=== PATIENT | female | born 1980 | race Caucasian/White ===

== ENCOUNTER 2018-08-01 18:59 | Emergency (ER) | payer BC ==
[~2018-08-01] VITALS: Ht 154.9 cm; Wt 81.2 kg
[2018-08-01 19:44] LABS: BILIRUBIN,URINE NEGATIVE (NEG); CLARITY,URINE CLEAR; COLOR,URINE YELLOW; NITRITE,URINE NEGATIVE (NEG); PROTEIN,URINE NEGATIVE (NEG-TRACE); UROBILINOGEN,URINE 0.2 mg/dL (0.2 mg/dL)
[2018-08-01] MEDS ORDERED: IV NORMAL SALINE 1000ML BAG 1,000 ML IV ONE (19:45)
[2018-08-01] MEDS ORDERED: ONDANSETRON PF 4 MG/2 ML VIAL. IV ONE (19:45)
[2018-08-01] MEDS ORDERED: fentaNYL PF VIAL 100 MCG/2 ML VIAL IV ONE (19:45)
--- NOTE | 2018-08-01 19:45 | PHYS DOC ---
Past Medical History Past Medical History: No Pertinent History Alcohol Use: None Drug Use: None Adult General Chief Complaint Chief Complaint: ABDOMINAL PAIN HPI HPI Patient is a 37 year old female who presents with generalized abdominal pain started today at 11:00 she was at the gym on the [facility] [employer]. Patient states started in the left lower abdomen and made its way up to her upper abdomen. Patient states she had a bowel movement this morning that was normal for her. Patient states she feels pressure but no pain with urinating. Patient denies any nausea or vomiting or diarrhea. Patient states she is finished her menses yesterday. Patient states she has no known drug allergies, takes no meds daily, does no drugs or alcohol or smoke. Patient states she has a history of a left- sided ovarian cyst and a . Review of Systems Review of Systems Constitutional: Denies fever or chills [] Eyes: Denies change in visual acuity, redness, or eye pain [] HENT: Denies nasal congestion or sore throat [] Respiratory: Denies cough or shortness of breath [] Cardiovascular: No additional information not addressed in HPI [] GI: generalised abdominal pain. Denies nausea, vomiting, bloody stools or diarrhea [] : Bladder pressure. Denies dysuria or hematuria [] Musculoskeletal: Denies back pain or joint pain [] Integument: Denies rash or skin lesions [] Neurologic: Denies headache, focal weakness or sensory changes [] Endocrine: Denies polyuria or polydipsia [] All other systems were reviewed and found to be within normal limits, except as documented in this note. Current Medications Current Medications Current Medications Medications (Trade) Dose Ordered Sig/[facility] Start Time Stop Time Status Last Admin Dose Admin Fentanyl Citrate (Fentanyl 2ml Vial) 50 mcg 1X ONCE 08/01/18 19:45 08/01/18 19:46 DC 08/01/18 19:51 50 MCG Iohexol (Omnipaque 300 Mg/ml) 75 ml 1X ONCE 08/01/18 20:15 08/01/18 20:16 DC 08/01/18 20:13 75 ML Ondansetron HCl (Zofran) 4 mg 1X ONCE 08/01/18 19:45 08/01/18 19:46 DC 08/01/18 19:51 4 MG Sodium Chloride 1,000 ml @ 1,000 mls/hr 1X ONCE 08/01/18 19:45 08/01/18 20:44 DC 08/01/18 19:51 1,000 MLS/HR Allergies Allergies Allergies Coded Allergies Type Severity Reaction Last Updated Verified No Known Drug Allergies 08/01/18 No Physical Exam Physical Exam Constitutional: Well developed, well nourished, no acute distress, non-toxic appearance. [] HENT: Normocephalic, atraumatic, bilateral external ears normal, oropharynx moist, no oral exudates, nose normal. [] Eyes: PERRLA, EOMI, conjunctiva normal, no discharge. [] Neck: Normal range of motion, no tenderness, supple, no stridor. [] Cardiovascular:Heart rate regular rhythm, no murmur [] Lungs & Thorax: Bilateral breath sounds clear to auscultation [] Abdomen: Bowel sounds normal, soft, RUQ, Upper mid abdomen, RLQ, Mid lower abdominal tenderness, no masses, no pulsatile masses. [] Skin: Warm, dry, no erythema, no rash. [] Back: No tenderness, no CVA tenderness. [] Extremities: No tenderness, no cyanosis, no clubbing, ROM intact, no edema. [] Neurologic: Alert and oriented X 3, normal motor function, normal sensory function, no focal deficits noted. [] Psychologic: Affect normal, judgement normal, mood normal. [] Current Patient Data Vital Signs Vital Signs Date Time Temp Pulse Resp B/P (MAP) Pulse Ox O2 Delivery O2 Flow Rate FiO2 08/01/18 19:00 98.8 71 18 165/113 (130) 97 Room Air 98.8 Lab Values Laboratory Tests Test 08/01/18 19:19 08/01/18 19:38 08/01/18 19:41 Urine Collection Type Unknown Urine Color Yellow Urine Clarity Clear Urine pH 7.0 Urine Specific [place] 1.010 Urine Protein Negative mg/dL (NEG-TRACE) Urine Glucose (UA) Negative mg/dL (NEG) Urine Ketones (Stick) Negative mg/dL (NEG) Urine Blood Small (NEG) Urine Nitrite Negative (NEG) Urine Bilirubin Negative (NEG) Urine Urobilinogen Dipstick 0.2 mg/dL (0.2 mg/dL) Urine Leukocyte Esterase Trace (NEG) Urine RBC 1-2 /HPF (0-2) Urine WBC 1-4 /HPF (0-4) Urine Squamous Epithelial Cells Mod /LPF Urine Bacteria 0 /HPF (0-FEW) POC Urine HCG, Qualitative Hcg negative (Negative) White Blood Count 15.3 x10^3/uL (4.0-11.0) H Red Blood Count 5.07 x10^6/uL (3.50-5.40) Hemoglobin 14.8 g/dL (12.0-15.5) Hematocrit 42.5 % (36.0-47.0) Mean Corpuscular Volume 84 fL (79-100) Mean Corpuscular Hemoglobin 29 pg (25-35) Mean Corpuscular Hemoglobin Concent 35 g/dL (31-37) Red Cell Distribution Width 14.0 % (11.5-14.5) Platelet Count 234 x10^3/uL (140-400) Neutrophils (%) (Auto) 76 % (31-73) H Lymphocytes (%) (Auto) 17 % (24-48) L Monocytes (%) (Auto) 6 % (0-9) Eosinophils (%) (Auto) 1 % (0-3) Basophils (%) (Auto) 0 % (0-3) Neutrophils # (Auto) 11.6 x10^3uL (1.8-7.7) H Lymphocytes # (Auto) 2.5 x10^3/uL (1.0-4.8) Monocytes # (Auto) 0.9 x10^3/uL (0.0-1.1) Eosinophils # (Auto) 0.2 x10^3/uL (0.0-0.7) Basophils # (Auto) 0.0 x10^3/uL (0.0-0.2) Sodium Level 140 mmol/L (136-145) Potassium Level 3.6 mmol/L (3.5-5.1) Chloride Level 103 mmol/L (98-107) Carbon Dioxide Level 28 mmol/L (21-32) Anion Gap 9 (6-14) Blood Urea Nitrogen 13 mg/dL (7-20) Creatinine 0.8 mg/dL (0.6-1.0) Estimated GFR (Cockcroft-Gault) 79.9 BUN/Creatinine Ratio 16 (6-20) Glucose Level 107 mg/dL (70-99) H Calcium Level 9.8 mg/dL (8.5-10.1) Total Bilirubin 0.3 mg/dL (0.2-1.0) Aspartate Amino Transferase (AST) 24 U/L (15-37) Alanine Aminotransferase (ALT) 32 U/L (14-59) Alkaline Phosphatase 83 U/L (46-116) Total Protein 8.0 g/dL (6.4-8.2) Albumin 3.9 g/dL (3.4-5.0) Albumin/Globulin Ratio 1.0 (1.0-1.7) Lipase 182 U/L (73-393) Laboratory Tests 08/01/18 19:41 Laboratory Tests 08/01/18 19:41 EKG EKG [] Radiology/Procedures Radiology/Procedures CT ABD PELV Impressions: [facility] [address] [place] [address] IMAGING REPORT Signed PATIENT: ROBERTO IRAHETA ACCOUNT: [id number] : 1980 LOCATION: ER AGE: 37 SEX: F EXAM STATUS: REG ER ORD. PHYSICIAN: RC PICHARDO APRN REASON: generalised abdominal and pelvic pain with tenderness PROCEDURE: CT ABD PELV W/ IV CONTRST ONLY PQRS Compliance Statement: One or more of the following individualized dose reduction techniques were utilized for this examination: 1. Automated exposure control 2. Adjustment of the mA and/or kV according to patient size 3. Use of iterative reconstruction technique CT abdomen/pelvis with contrast 08/01/2018 7:35 PM INDICATION: Severe lower abdominal pain and generalized tenderness COMPARISON: None available TECHNIQUE: Multiple axial CT images of the abdomen and pelvis were obtained after the intravenous administration of 75 mL Omnipaque 300. Coronal and sagittal reformats are provided. FINDINGS: Visualized portions of the lung bases are clear. Heart size is within normal limits. No suspicious hepatic masses are identified. Liver is homogeneous in enhancement. Spleen, bilateral adrenal glands, and pancreas are normal in appearance. Gallbladder is present without adjacent inflammatory changes. The abdominal aorta is normal in course and caliber. There are no pathologically enlarged lymph nodes in the abdomen and pelvis. There is no abdominal free fluid. There is no free intraperitoneal air. The kidneys enhance symmetrically. There is no suspicious renal mass. There is no hydronephrosis. There are no suspected calculi within the kidneys, ureters or urinary bladder. Small and large bowel are normal in caliber. There is no evidence for bowel obstruction. There are no pericolonic inflammatory changes. A normal, nondilated appendix is visualized without adjacent inflammatory changes. Uterus is normal in appearance. Left adnexal cystic lesion measures 4.8 x 4.8 cm. Right adnexal cystic lesion measures 2.6 x 2.4 cm. Urinary bladder is within normal limits given degree of distention. No significant free fluid is identified within the pelvis. No suspicious osseous amount is identified. IMPRESSION: There is a 4.8 x 4.8 cm cystic lesion in the left adnexa, likely representing a dominant follicle. If there is persistent clinical concern, further evaluation with pelvic ultrasound may be of benefit to assess perfusion of the ovary. Electronically signed by: Iggy Beard MD (08/01/2018 8:24 PM) [facility] DICTATED and SIGNED BY: IGGY BEARD MD DATE: 08/01/182020 [facility] [address] [facility] [place] [address] IMAGING REPORT Signed PATIENT: ROBERTO IRAHETA ACCOUNT: [id number] : 1980 LOCATION: ER AGE: 37 SEX: F EXAM STATUS: REG ER ORD. PHYSICIAN: RC PICHARDO APRN REASON: Pelvic pain, adnexa cyst PROCEDURE: PELVIS ULTRASOUND Pelvic ultrasound 08/01/2018 CLINICAL HISTORY: Left pelvic pain for one day. TECHNIQUE: Using the distended urinary bladder as a sonographic window, a real-time ultrasound examination of the pelvis was performed. Multiple images were obtained. FINDINGS: Comparison is made to the patient's CT scan of the abdomen and pelvis performed earlier today. The uterus is within normal limits in size and echogenicity. It measures 12.7 x 6.4 x 4.5 cm in longitudinal, transverse, and AP dimensions. The endometrial echo complex measures 4 mm in thickness which is within normal limits. No focal abnormality of the uterus is seen. The right ovary is normal in size and echogenicity. It measures 3.2 x 2.6 x 2.0 cm in size. The left ovary is enlarged. It measures 5.9 x 6.1 x 3.5 cm in size. Within the left ovary a well-defined anechoic structure is seen which measures 5 cm in greatest diameter. This is consistent with a simple cyst. This corresponds to the abnormality seen on the patient's CT scan. Normal color-flow and pulse Doppler imaging to both ovaries is seen. No free fluid is noted. IMPRESSION: 5 cm simple left ovarian cyst. Electronically signed by: Dean Cook MD (08/01/2018 10:17 PM) [facility] DICTATED and SIGNED BY: DEAN COOK MD DATE: 08/01/182213 Course & Med Decision Making Course & Med Decision Making Patient is a 37 year old female who presents with generalized abdominal pain started today at 11:00 she was at the gym on the [employer]. Patient states started in the left lower abdomen and made its way up to her upper abdomen. Patient states she had a bowel movement this morning that was normal for her. Patient states she feels pressure but no pain with urinating. Patient denies any nausea or vomiting or diarrhea. Patient states she is finished her menses yesterday. Patient states she has no known drug allergies, takes no meds daily, does no drugs or alcohol or smoke. Patient states she has a history of a left- sided ovarian cyst and a . Patient has mid lower abdominal tenderness, right lower abdominal tenderness, right upper and mid upper abdominal tenderness with palpation. Patient is alert and oriented. Patient denies any unusual vaginal discharge. Patient has no swelling in any extremities. Patient denies chest pain or shortness of air. Heart rate is regular without murmur. Lungs are clear to auscultation. Patient is neurologically intact. Patient is stable and in no distress. CT ABD PELV shows There is a 4.8 x 4.8 cm cystic lesion in the left adnexa, likely representing a dominant follicle. If there is persistent clinical concern,further evaluation with pelvic ultrasound may be of benefit to assess perfusion of the ovary. Patients blood work is unremarkable. I will get a pelvic ultra sound to further investigate cystic lesion and perfusion to ovaries. Pelvic US shows 5 cm simple left ovarian cyst. Patient to follow up with her global account executive or primary care physician. Patient is stable and states that her pain is better but still hurts. Patient is stable and in no distress. Patient will be sent home with a prescription for [place]. [] Dragon Disclaimer Dragon Disclaimer This electronic medical record was generated, in whole or in part, using a voice recognition dictation system. Departure Departure Impression: Primary Impression: Abdominal pain Disposition: HOME, SELF-CARE Condition: STABLE Referrals: NO PCP (PCP) Patient Instructions: Abdominal Pain (Nonspecific) Additional Instructions: Follow up with primary care and global account executive. Scripts Hydrocodone/Apap 5-325 (NORCO 5-325 TABLET) 1 Each Tablet 1 TAB PO PRN Q6HRS PRN for PAIN, #8 TAB 0 Refills Prov: RC PICHARDO APRN 08/01/18 Problem Qualifiers Primary Impression: Abdominal pain Abdominal location: generalized Qualified Codes: R10.84 - Generalized abdominal pain RC PICHARDO APRN Aug 01, 2018 19:45
[2018-08-01 19:51] LABS: BASO % 0 % (0-3); EOS # 0.2 x10^3/uL (0.0-0.7); EOS % 1 % (0-3); HEMATOCRIT 42.5 % (36.0-47.0); HEMOGLOBIN 14.8 g/dL (12.0-15.5); LYMPH # 2.5 x10^3/uL (1.0-4.8); LYMPH % 17 % (24-48); MEAN CORPUSCULAR HEMOGLOBIN 29 pg (25-35); MEAN CORPUSCULAR HGB CONC 35 g/dL (31-37); MEAN CORPUSCULAR VOLUME 84 fL (79-100); MONO # 0.9 x10^3/uL (0.0-1.1); MONO % 6 % (0-9); NEUT # 11.6 x10^3uL (1.8-7.7); NEUT % 76 % (31-73); PLATELET COUNT 234 x10^3/uL (140-400); RED BLOOD COUNT 5.07 x10^6/uL (3.50-5.40); WHITE BLOOD COUNT 15.3 x10^3/uL (4.0-11.0)
[2018-08-01 19:56] LABS: BACTERIA,URINE 0 /HPF (0-FEW); SQUAMOUS EPITHELIAL CELL,UR MOD /LPF
[2018-08-01 19:59] LABS: CALCIUM 9.8 mg/dL (8.5-10.1); CREATININE 0.8 mg/dL (0.6-1.0); GFR 79.9; POTASSIUM 3.6 mmol/L (3.5-5.1)
[2018-08-01 20:05] LABS: ALBUMIN 3.9 g/dL (3.4-5.0); TOTAL BILIRUBIN 0.3 mg/dL (0.2-1.0)
[2018-08-01] MEDS ORDERED: IOHEXOL 300 MG/ML 100ML VIAL. IV ONE (20:15)
--- NOTE | 2018-08-01 20:28 | RAD ---
PQRS Compliance Statement: One or more of the following individualized dose reduction techniques were utilized for this examination: 1. Automated exposure control 2. Adjustment of the mA and/or kV according to patient size 3. Use of iterative reconstruction technique CT abdomen/pelvis with contrast 08/01/2018 7:35 PM INDICATION: Severe lower abdominal pain and generalized tenderness COMPARISON: None available TECHNIQUE: Multiple axial CT images of the abdomen and pelvis were obtained after the intravenous administration of 75 mL Omnipaque 300. Coronal and sagittal reformats are provided. FINDINGS: Visualized portions of the lung bases are clear. Heart size is within normal limits. No suspicious hepatic masses are identified. Liver is homogeneous in enhancement. Spleen, bilateral adrenal glands, and pancreas are normal in appearance. Gallbladder is present without adjacent inflammatory changes. The abdominal aorta is normal in course and caliber. There are no pathologically enlarged lymph nodes in the abdomen and pelvis. There is no abdominal free fluid. There is no free intraperitoneal air. The kidneys enhance symmetrically. There is no suspicious renal mass. There is no hydronephrosis. There are no suspected calculi within the kidneys, ureters or urinary bladder. Small and large bowel are normal in caliber. There is no evidence for bowel obstruction. There are no pericolonic inflammatory changes. A normal, nondilated appendix is visualized without adjacent inflammatory changes. Uterus is normal in appearance. Left adnexal cystic lesion measures 4.8 x 4.8 cm. Right adnexal cystic lesion measures 2.6 x 2.4 cm. Urinary bladder is within normal limits given degree of distention. No significant free fluid is identified within the pelvis. No suspicious osseous amount is identified. IMPRESSION: There is a 4.8 x 4.8 cm cystic lesion in the left adnexa, likely representing a dominant follicle. If there is persistent clinical concern, further evaluation with pelvic ultrasound may be of benefit to assess perfusion of the ovary. Electronically signed by: Susan Hanson MD (08/01/2018 8:24 PM) [facility]
[2018-08-01 22:00] VITALS: BP 142/82
--- NOTE | 2018-08-01 22:21 | RAD ---
Pelvic ultrasound 08/01/2018 CLINICAL HISTORY: Left pelvic pain for one day. TECHNIQUE: Using the distended urinary bladder as a sonographic window, a real-time ultrasound examination of the pelvis was performed. Multiple images were obtained. FINDINGS: Comparison is made to the patient's CT scan of the abdomen and pelvis performed earlier today. The uterus is within normal limits in size and echogenicity. It measures 12.7 x 6.4 x 4.5 cm in longitudinal, transverse, and AP dimensions. The endometrial echo complex measures 4 mm in thickness which is within normal limits. No focal abnormality of the uterus is seen. The right ovary is normal in size and echogenicity. It measures 3.2 x 2.6 x 2.0 cm in size. The left ovary is enlarged. It measures 5.9 x 6.1 x 3.5 cm in size. Within the left ovary a well-defined anechoic structure is seen which measures 5 cm in greatest diameter. This is consistent with a simple cyst. This corresponds to the abnormality seen on the patient's CT scan. Normal color-flow and pulse Doppler imaging to both ovaries is seen. No free fluid is noted. IMPRESSION: 5 cm simple left ovarian cyst. Electronically signed by: Dean Cook MD (08/01/2018 10:17 PM) [facility]
[2018-08-01] MEDS ORDERED: HYDR-971 PO (22:32)
== END 2018-08-01 23:00 | disposition home or self-care (01) ==
LOC: ER 18:59
DX: N83.202 Unspecified ovarian cyst, left side (principal)
CPT/HCPCS: 36415; 74177; 76856; 80053; 81001; 81025; 83690; 85025; 87086; 96374; 96375; 99285; J2405; J3010; J7030; Q9967